=== PATIENT | female | born 1970 | race Caucasian/White ===

== ENCOUNTER 2018-05-20 06:13 | Emergency (ER) | payer MEDICARE, MEDICAID ==
[~2018-05-20] VITALS: Ht 154.9 cm; Wt 100.0 kg
[~2018-05-20 06:13] MED LIST: IBUP-2030; SYN200
[2018-05-20] MEDS ORDERED: SODIUM CHLORIDE 0.9% 1,000 ML IV ONE (06:42)
[2018-05-20] MEDS ORDERED: ONDANSETRON HCL 4MG/2ML INJ IV STA (06:42)
[2018-05-20] MEDS ORDERED: MORPHINE SULFATE 4 MG/ML CPJ (NOT FOR IM USE) IV STA (06:42)
[2018-05-20 07:53] LABS: HCG SCREEN NEGATIVE
[2018-05-20] MEDS ORDERED: MORPHINE SULFATE 4 MG/ML CPJ (NOT FOR IM USE) IV ONE ×2 (08:30→09:15)
[2018-05-20] MEDS ORDERED: ETOMIDATE 2MG/ML 10ML VIAL IV ONE (09:15)
[2018-05-20 12:00] VITALS: BP 150/80
== END 2018-05-20 11:23 | disposition home or self-care (01) ==
LOC: ER 06:13
DX: S43.084A Other dislocation of right shoulder joint, initial encounter (principal); E03.9 Hypothyroidism, unspecified; F17.200 Nicotine dependence, unspecified, uncomplicated; W18.39XA Other fall on same level, initial encounter; Y93.89 Activity, other specified; Y92.89 Other specified places as the place of occurrence of the external cause; Y99.8 Other external cause status; Z98.890 Other specified postprocedural states
CPT/HCPCS: 23650; 73030; 84703; 94640; 96374; 96375; 96376; 99152; 99285; J2270; J2405; J3490; J7030; L3670

== ENCOUNTER 2019-12-20 07:48 | Emergency (ER) | payer MEDICARE, MEDICAID, OTHER ==
[~2019-12-20] VITALS: Ht 154.9 cm; Wt 73.0 kg
[2019-12-20] MEDS ORDERED: MORPHINE SULFATE 4 MG/ML CPJ (NOT FOR IM USE) IV STA (08:03)
[2019-12-20] MEDS ORDERED: PROPOFOL 200MG/20ML VIAL IV PRN (08:45)
[2019-12-20] MEDS ORDERED: KETAMINE HCL 50 MG/ML 10ML IV ONE (08:45)
[2019-12-20] MEDS ORDERED: ONDANSETRON HCL 4MG/2ML INJ IV ONE (08:45)
[2019-12-20 11:00] VITALS: BP 160/95
== END 2019-12-20 11:00 | disposition home or self-care (01) ==
LOC: ER 07:48
DX: M24.411 Recurrent dislocation, right shoulder (principal); Q78.0 Osteogenesis imperfecta; M19.011 Primary osteoarthritis, right shoulder; R03.0 Elevated blood-pressure reading, without diagnosis of hypertension; E03.9 Hypothyroidism, unspecified; J45.909 Unspecified asthma, uncomplicated; Z79.899 Other long term (current) drug therapy
CPT/HCPCS: 23650; 73030; 96374; 96375; 99284; J2270; J2405; J2704; J3490

== ENCOUNTER 2021-06-30 10:43 | Emergency (ER) | payer MEDICARE, MEDICAID ==
[~2021-06-30] VITALS: Ht 152.4 cm; Wt 83.0 kg
[2021-06-30 10:45] VITALS: BP 164/103
[2021-06-30 13:20] LABS: BASOPHILS % 1.3 % (0.0-2.0); EOSINOPHILS % 2.1 % (0.0-5.0); HEMATOCRIT. 42.3 % (36.0-48.0); HEMOGLOBIN. 14.8 g/dL (12.0-16.0); LYMPHOCYTES % 32.9 % (20.0-50.0); MEAN CORPUSCULAR HEMOGLOBIN 32.1 pg (28.0-32.0); MEAN CORPUSCULAR VOLUME 92.1 fL (81.0-99.0); MEAN PLATELET VOLUME 7.8 fl (7.4-10.4); MONOCYTES % 4.8 % (2.0-8.0); NEUTROPHILS % 58.9 % (40.0-76.0); PLATELET 322 x1000/uL (130-400); RED BLOOD CELL COUNT 4.59 mill/uL (4.2-5.4); RED CELL DISTRIBUTION WIDTH 13.2 % (11.6-14.6)
[2021-06-30 13:23] LABS: CHLORIDE 111 mEq/L (98-107)
[2021-06-30] MEDS ORDERED: IOHEXOL-300 100 ML BOTTLE ONE (15:41)
[2021-06-30] MEDS ORDERED: LIDO1ADH5 TP (15:50)
== END 2021-06-30 16:38 | disposition home or self-care (01) ==
LOC: ER 10:43
DX: M54.2 Cervicalgia (principal); R03.0 Elevated blood-pressure reading, without diagnosis of hypertension; I45.10 Unspecified right bundle-branch block; Q78.0 Osteogenesis imperfecta; E03.9 Hypothyroidism, unspecified; Z98.890 Other specified postprocedural states
CPT/HCPCS: 36415; 70491; 72040; 80053; 81025; 85025; 93005; 99285; Q9967

== ENCOUNTER 2021-10-16 17:44 | Inpatient (IN) | payer MEDICARE, MEDICAID ==
[~2021-10-16] VITALS: Ht 149.9 cm; Wt 75.7 kg
[~2021-10-16 17:44] MED LIST changes: +LIDO1ADH5 TP
[2021-10-16] MEDS ORDERED: VISCOUS LIDOCAINE 2% 15 ML UDC PO STA (17:48)
[2021-10-16] MEDS ORDERED: MAGNESIUM/ALUMINUM HYDROXIDE/SIMETHICONE 30ML UDC PO STA (17:48)
[2021-10-16 18:17] LABS: BASOPHILS % 0.3 % (0.0-2.0); EOSINOPHILS % 1.1 % (0.0-5.0); HEMATOCRIT. 38.1 % (36.0-48.0); LYMPHOCYTES % 27.3 % (20.0-50.0); MEAN CORPUSCULAR HEMOGLOBIN 31.5 pg (28.0-32.0); MEAN CORPUSCULAR VOLUME 91.8 fL (81.0-99.0); MEAN PLATELET VOLUME 7.6 fl (7.4-10.4); MONOCYTES % 4.5 % (2.0-8.0); NEUTROPHILS % 66.8 % (40.0-76.0); PLATELET 315 x1000/uL (130-400); RED BLOOD CELL COUNT 4.14 mill/uL (4.2-5.4); RED CELL DISTRIBUTION WIDTH 12.7 % (11.6-14.6)
[2021-10-16 18:24] LABS: CHLORIDE 110 mEq/L (98-107)
[2021-10-16 21:51] LABS: T4 FREE 0.46 ng/dL (0.76-1.46)
[2021-10-16] MEDS ORDERED: LIDOCAINE 5% PATCH TOP SCH (22:45)
[2021-10-16] MEDS ORDERED: VISCOUS LIDOCAINE 2% 15 ML UDC PO NR (22:45)
[2021-10-16] MEDS ORDERED: LEVOTHYROXINE SODIUM 200MCG TABLET PO ONE (22:45)
[2021-10-16] MEDS ORDERED: MAGNESIUM/ALUMINUM HYDROXIDE/SIMETHICONE 30ML UDC PO NR (22:45)
[2021-10-16] MEDS ORDERED: ACETAMINOPHEN 325MG TABLET PO ONE (22:45)
[2021-10-17] MEDS ORDERED: MORPHINE SULFATE 4 MG/ML CPJ (NOT FOR IM USE) IV SCH (02:30)
[2021-10-17] MEDS ORDERED: NALOXONE HCL 0.4 MG/ML 1ML VIAL IV PRN (02:45)
[2021-10-17 03:33] LABS: CLARITY URINE CLOUDY (CLEAR); COLOR URINE YELLOW (YELLOW); KETONES URINE NEGATIVE (NEGATIVE); LEUKOCYTE ESTERASE URINE 1+ (NEGATIVE); NITRITE URINE POSITIVE (NEGATIVE); OCCULT BLOOD URINE 2+ (NEGATIVE); PH URINE 6.5 (4.5-8.0); PROTEIN URINE NEGATIVE (NEGATIVE); SPECIFIC GRAVITY URINE 1.018 (1.005-1.030); UROBILINOGEN URINE 0.2 E.U./dL (0.2-1.0)
[2021-10-17] MEDS ORDERED: ACETAMINOPHEN 325MG TABLET PO PRN (06:45)
[2021-10-17] MEDS ORDERED: ONDANSETRON HCL 4MG/2ML INJ IV PRN (06:45)
[2021-10-17] MEDS ORDERED: HYDROCODONE/APAP 7.5/325MG 1 TAB TABLET PO PRN (06:45)
[2021-10-17] MEDS ORDERED: ENOXAPARIN 40MG/0.4ML SYR SUBCUT SCH (06:45)
[2021-10-17] MEDS ORDERED: NA PHOS,M-B/NA PHOS,DI-BA ENEMA 118ML PR PRN (06:45)
[2021-10-17] MEDS ORDERED: DOCUSATE SODIUM 100MG CAPSULE PO PRN (06:45)
[2021-10-17] MEDS ORDERED: MAGNESIUM/ALUMINUM HYDROXIDE/SIMETHICONE 30ML UDC PO PRN (06:45)
[2021-10-17] MEDS ORDERED: HYDROMORPHONE HCL/PF 2MG/ML CPJ IV PRN (06:45)
[2021-10-17] MEDS ORDERED: CLONIDINE 0.1MG TABLET PO PRN (06:45)
[2021-10-17] MEDS ORDERED: LEVOFLOXACIN 500MG PREMIX 100 ML IV SCH ×2 (09:00→13:00)
[2021-10-17] MEDS ORDERED: ENOXAPARIN 30MG/0.3ML SYR SUBCUT SCH (09:00)
[2021-10-17 09:56] VITALS: BP 156/96
[2021-10-17] MEDS ORDERED: NALOXONE HCL 0.4MG/ML VIAL IV PRN (11:00)
[2021-10-17] MEDS: LIDOCAINE 5% PATCH TOP SCH (11:15)
[2021-10-17 12:00] VITALS: BP 149/87
[2021-10-17] MEDS: LEVOTHYROXINE SODIUM 200MCG TABLET PO SCH (12:59)
[2021-10-17] MEDS: ENOXAPARIN 40MG/0.4ML SYR SUBCUT SCH (13:01)
[2021-10-17] MEDS ORDERED: INFLUENZA VACCINE 05/PF 0.5 ML SYRINGE IM ONE (14:00)
[2021-10-17] MEDS ORDERED: PNEUMOCOCCAL 23-VAL P-SAC VAC 0.5 ML IM ONE (14:00)
[2021-10-17 16:00] VITALS: BP 149/93
[2021-10-17 20:00] VITALS: BP 160/82
[2021-10-18] VITALS: BP 156/84
[2021-10-18 04:00] VITALS: BP 135/84
[2021-10-18 06:41] LABS: BASOPHILS % 0.4 % (0.0-2.0); HEMOGLOBIN. 13.3 g/dL (12.0-16.0); LYMPHOCYTES % 28.2 % (20.0-50.0); MEAN CORPUSCULAR HEMOGLOBIN 32.1 pg (28.0-32.0); MEAN CORPUSCULAR VOLUME 91.7 fL (81.0-99.0); MEAN PLATELET VOLUME 7.8 fl (7.4-10.4); MONOCYTES % 5.6 % (2.0-8.0); NEUTROPHILS % 63.8 % (40.0-76.0); PLATELET 297 x1000/uL (130-400); RED BLOOD CELL COUNT 4.14 mill/uL (4.2-5.4); RED CELL DISTRIBUTION WIDTH 12.6 % (11.6-14.6)
[2021-10-18 06:52] LABS: CHLORIDE 111 mEq/L (98-107)
[2021-10-18] MEDS: LEVOTHYROXINE SODIUM 200MCG TABLET PO SCH (07:48)
[2021-10-18 08:00] VITALS: BP 145/95
[2021-10-18] MEDS: LIDOCAINE 5% PATCH TOP SCH (08:32)
[2021-10-18] MEDS: ENOXAPARIN 40MG/0.4ML SYR SUBCUT SCH (08:33)
[2021-10-18 11:29] VITALS: BP 145/95
[2021-10-18 12:18] VITALS: BP 140/86
== END 2021-10-18 14:30 | disposition home or self-care (01) | DRG 543 ==
LOC: ER 17:44 → MICUSO 10-17 02:20 → 5WST 10-17 10:50
PROVIDERS: ADMIT Hospitalist; ATTEND Hospitalist
DX: M48.54XA Collapsed vertebra, not elsewhere classified, thoracic region, initial encounter for fracture (principal); N39.0 Urinary tract infection, site not specified; Q78.0 Osteogenesis imperfecta; M19.90 Unspecified osteoarthritis, unspecified site; E03.9 Hypothyroidism, unspecified; F17.200 Nicotine dependence, unspecified, uncomplicated; K80.20 Calculus of gallbladder without cholecystitis without obstruction; Z20.822 Contact with and (suspected) exposure to COVID-19; T38.1X6A Underdosing of thyroid hormones and substitutes, initial encounter; Y92.89 Other specified places as the place of occurrence of the external cause; Z86.16 Personal history of COVID-19; Z82.49 Family history of ischemic heart disease and other diseases of the circulatory system
CPT/HCPCS: 36415; 71045; 71250; 72146; 72148; 76700; 80053; 81003; 83880; 84439; 84443; 84481; 84484; 85025; 87077; 87186; 87426; 90686; 90732; 93005; 93970; 99285; J1650; J1956; A4315

== ENCOUNTER → 2021-12-02 | Outpatient (CLI) | payer MEDICARE, MEDICAID | END | disposition home or self-care (01) | LOC: RAD 10:12 | PROVIDERS: ATTEND Neurological Surgery | DX: S22.068A Other fracture of T7-T8 thoracic vertebra, initial encounter for closed fracture (principal); M47.812 Spondylosis without myelopathy or radiculopathy, cervical region; M48.02 Spinal stenosis, cervical region; M43.5X Other recurrent vertebral dislocation; M25.78 Osteophyte, vertebrae; M85.88 Other specified disorders of bone density and structure, other site; M41.86 Other forms of scoliosis, lumbar region; M47.816 Spondylosis without myelopathy or radiculopathy, lumbar region; M43.5X7 Other recurrent vertebral dislocation, lumbosacral region; X58.XXXA Exposure to other specified factors, initial encounter; Y93.89 Activity, other specified; Y92.89 Other specified places as the place of occurrence of the external cause; Y99.8 Other external cause status | CPT/HCPCS: 72052; 72070; 72114 ==

== ENCOUNTER 2022-01-03 20:21 | Emergency (ER) | payer MEDICARE, MEDICAID ==
[~2022-01-03] VITALS: Ht 154.9 cm; Wt 73.9 kg
[2022-01-03] MEDS ORDERED: ACETAMINOPHEN 325MG TABLET PO ONE (21:30)
[2022-01-03 23:59] LABS: BASOPHILS % 0.5 % (0.0-2.0); EOSINOPHILS % 2.7 % (0.0-5.0); HEMATOCRIT. 39.6 % (36.0-48.0); HEMOGLOBIN. 13.5 g/dL (12.0-16.0); LYMPHOCYTES % 32.6 % (20.0-50.0); MEAN CORPUSCULAR HEMOGLOBIN 31.4 pg (28.0-32.0); MEAN CORPUSCULAR VOLUME 92.3 fL (81.0-99.0); MEAN PLATELET VOLUME 7.8 fl (7.4-10.4); MONOCYTES % 4.6 % (2.0-8.0); NEUTROPHILS % 59.6 % (40.0-76.0); PLATELET 283 x1000/uL (130-400); RED BLOOD CELL COUNT 4.29 mill/uL (4.2-5.4); RED CELL DISTRIBUTION WIDTH 13.7 % (11.6-14.6)
[2022-01-04 00:20] LABS: CHLORIDE 112 mEq/L (98-107)
[2022-01-04] MEDS ORDERED: ONDA4TAB5 MT (00:44)
[2022-01-04 01:06] VITALS: BP 134/76
== END 2022-01-04 01:07 | disposition home or self-care (01) ==
LOC: ER 20:21
DX: R10.11 Right upper quadrant pain (principal); R51.9 Headache, unspecified; Z86.39 Personal history of other endocrine, nutritional and metabolic disease
CPT/HCPCS: 36415; 76700; 80053; 84484; 85025; 99284

== ENCOUNTER 2022-01-21 17:04 | Emergency (ER) | payer MEDICARE, MEDICAID ==
[~2022-01-21] VITALS: Ht 154.9 cm; Wt 73.0 kg
[~2022-01-21 17:04] MED LIST changes: +ONDA4TAB5 MT
[2022-01-21 21:34] VITALS: BP 143/86
[2022-01-21] MEDS ORDERED: IBUPROFEN 600MG TABLET PO ONE (22:30)
== END 2022-01-22 00:47 | disposition home or self-care (01) ==
LOC: ER 17:04
DX: R07.81 Pleurodynia (principal); Q78.0 Osteogenesis imperfecta
CPT/HCPCS: 71101; 99283

== ENCOUNTER 2022-04-16 11:54 | Emergency (ER) | payer MEDICARE, MEDICAID ==
[~2022-04-16] VITALS: Ht 149.9 cm; Wt 71.0 kg
[2022-04-16 12:15] VITALS: BP 151/83
[2022-04-16] MEDS ORDERED: ACETAMINOPHEN WITH CODEINE 300/30MG TABLET PO ONE (13:30)
[2022-04-16] MEDS ORDERED: T3 PO (15:17)
[2022-04-16] MEDS ORDERED: ACETAMINOPHEN WITH CODEINE 300/30MG TABLET PO NR (15:45)
== END 2022-04-16 14:02 | disposition home or self-care (01) ==
LOC: ER 11:54
DX: G89.29 Other chronic pain (principal); M54.59 Other low back pain
CPT/HCPCS: 72100; 99283

== ENCOUNTER 2022-09-01 10:48 | Emergency (ER) | payer MEDICARE, MEDICAID ==
[~2022-09-01] VITALS: Ht 152.4 cm; Wt 80.0 kg
[~2022-09-01 10:48] MED LIST changes: +T3 PO
[2022-09-01] MEDS ORDERED: IBUP-2028 MT (14:06)
[2022-09-01 15:08] VITALS: BP 136/85
== END 2022-09-01 15:12 | disposition home or self-care (01) ==
LOC: ER 10:48
DX: M25.552 Pain in left hip (principal)
CPT/HCPCS: 73502; 99283

== ENCOUNTER 2022-09-25 08:18 | Emergency (ER) | payer MEDICARE, MEDICAID ==
[~2022-09-25] VITALS: Ht 152.4 cm; Wt 74.0 kg
[~2022-09-25 08:18] MED LIST changes: +IBUP-2028 MT
[2022-09-25 08:31] VITALS: BP 171/102
[2022-09-25] MEDS ORDERED: LIDOCAINE 5% PATCH TOP SCH (09:00)
[2022-09-25] MEDS ORDERED: HYDROCODONE/ACETAMINOPHEN 5/325MG TABLET PO ONE (09:00)
[2022-09-25] MEDS ORDERED: IBUP-2029 MT (10:24)
[2022-09-25] MEDS ORDERED: BACL20TA MT (10:24)
[2022-09-25] MEDS ORDERED: LIDO700A15 TP (10:24)
[2022-09-25] MEDS ORDERED: T3 PO (10:25)
== END 2022-09-25 11:38 | disposition home or self-care (01) ==
LOC: ER 08:18
DX: G89.29 Other chronic pain (principal); M54.50 Low back pain, unspecified; I10 Essential (primary) hypertension; Z86.39 Personal history of other endocrine, nutritional and metabolic disease; Z98.890 Other specified postprocedural states; Z87.39 Personal history of other diseases of the musculoskeletal system and connective tissue
CPT/HCPCS: 72131; 99284

== ENCOUNTER 2022-10-31 11:42 | Emergency (ER) | payer MEDICARE, MEDICAID ==
[~2022-10-31] VITALS: Ht 160 cm; Wt 80.0 kg
[~2022-10-31 11:42] MED LIST changes: +BACL20TA MT; +IBUP-2029 MT; +LIDO700A15 TP
[2022-10-31] MEDS ORDERED: TOPUD PO (17:33)
[2022-10-31] MEDS ORDERED: IBUP-2028 MT (17:33)
[2022-10-31 18:04] VITALS: BP 168/86
== END 2022-10-31 18:05 | disposition home or self-care (01) ==
LOC: ER 11:44
DX: M85.872 Other specified disorders of bone density and structure, left ankle and foot (principal); Z87.828 Personal history of other (healed) physical injury and trauma
CPT/HCPCS: 73630; 99283

== ENCOUNTER 2022-12-02 10:09 | Emergency (ER) | payer MEDICARE, MEDICAID ==
[~2022-12-02] VITALS: Ht 162.6 cm; Wt 77.0 kg
[~2022-12-02 10:09] MED LIST changes: +TOPUD PO
[2022-12-02] MEDS ORDERED: KETOROLAC 30MG/ML VIAL IM SCH (11:12)
[2022-12-02 13:00] VITALS: BP 156/96
[2022-12-02] MEDS ORDERED: DICL50TA9 MT (13:13)
[2022-12-02] MEDS ORDERED: ACET-2708 PO (13:14)
== END 2022-12-02 13:35 | disposition home or self-care (01) ==
LOC: ER 10:09
DX: M72.2 Plantar fascial fibromatosis (principal); Q78.0 Osteogenesis imperfecta; E03.9 Hypothyroidism, unspecified
CPT/HCPCS: 73630; 73700; 96372; 99285; J1885